=== PATIENT | female | born 1985 | race Caucasian/White ===

== ENCOUNTER 2018-03-10 18:56 | Emergency (ER) | payer MEDICARE ==
[2018-03-10] MEDS ORDERED: Dexamethasone 10 MG/ML VIAL ONE (20:03)
== END 2018-03-10 20:08 | disposition home or self-care (01) ==
LOC: ERS 18:56
DX: K64.4 Residual hemorrhoidal skin tags (principal); K64.8 Other hemorrhoids; F41.9 Anxiety disorder, unspecified; Z87.891 Personal history of nicotine dependence; Z79.899 Other long term (current) drug therapy
CPT/HCPCS: 99282; J1100